=== PATIENT | female | born 1955 | race Caucasian/White ===

== ENCOUNTER 2025-06-12 13:26 | Emergency (ER) | payer OTHER ==
[~2025-06-12] VITALS: Ht 157.5 cm; Wt 70.0 kg
[2025-06-12 13:29] VITALS: TEMP 98.4
[2025-06-12] MEDS ORDERED: PROPOFOL 200MG/20ML VIAL IV ONE (14:15)
[2025-06-12] MEDS ORDERED: KETAMINE HCL 50 MG/ML 10ML IV ONE (14:15)
[2025-06-12] MEDS: MORPHINE SULFATE 4 MG/ML INJ (FOR IV/IM USE) IV ONE ×2 (14:20→16:57)
[2025-06-12 14:35] LABS: BASOPHILS % 0.5 % (0.0-2.0); EOSINOPHILS % 0.8 % (0.0-5.0); HEMATOCRIT. 36.2 % (36.0-48.0); HEMOGLOBIN. 12.2 g/dL (12.0-16.0); LYMPHOCYTES % 27.9 % (20.0-50.0); MEAN PLATELET VOLUME 9.8 fl (7.4-10.4); MONOCYTES % 5.0 % (2.0-8.0); NEUTROPHILS % 65.8 % (40.0-76.0); PLATELET 207 x1000/uL (130-400); RED BLOOD CELL COUNT 4.16 mill/uL (4.2-5.4); RED CELL DISTRIBUTION WIDTH 12.8 % (11.6-14.6)
[2025-06-12 14:49] LABS: CREATININE 0.7 mg/dL (0.6-1.0)
[2025-06-12 14:50] LABS: UREA NITROGEN BLOOD 13 mg/dL (9-23)
[2025-06-12 15:55] VITALS: PULSE 67; RESP 16; O2SAT 96
[2025-06-12 15:56] VITALS: O2SAT 98
[2025-06-12] MEDS: KETAMINE HCL 50 MG/ML 10ML IV SCH (16:39)
[2025-06-12] MEDS: PROPOFOL 200MG/20ML VIAL IV SCH (16:39)
[2025-06-12] MEDS ORDERED: KETO10TA2 MT (16:58)
[2025-06-12] MEDS: INSULIN REGULAR (HUMULIN R) 1000UNITS/10ML VIAL IV ONE (17:15)
[2025-06-12 17:55] VITALS: BP 178/72; PULSE 84; RESP 14; O2SAT 96
== END 2025-06-12 18:00 | disposition home or self-care (01) ==
LOC: EDBD 13:26 → ER 13:26 → CANBEDREQ 16:54 → ER 18:00
DX: S93.05XA Dislocation of left ankle joint, initial encounter (principal); I10 Essential (primary) hypertension; E11.65 Type 2 diabetes mellitus with hyperglycemia; Z79.899 Other long term (current) drug therapy; W01.0XXA Fall on same level from slipping, tripping and stumbling without subsequent striking against object, initial encounter; Y93.89 Activity, other specified; Y92.89 Other specified places as the place of occurrence of the external cause; Y99.8 Other external cause status
CPT/HCPCS: 27762; 80048; 85025; 36415; 73502; 73030; 73130; 73600; 73610; 73620; 94640; 98960; 96374; 96376; 99152; 99285; J3490; J2704; J2270; A4615; 94070; 94664; 94760